=== PATIENT | female | born 1955 | race African-American/Black ===

== ENCOUNTER 2023-04-11 11:43 | Outpatient (CLI) | payer MEDICARE, MEDICAID | END 2023-04-11 11:44 | disposition home or self-care (01) | LOC: CSHRAD 11:43 | PROVIDERS: ATTEND Specialist | DX: Z72.0 Tobacco use (principal) | CPT/HCPCS: 71046 ==

== ENCOUNTER 2024-08-20 14:00 | Outpatient (CLI) | payer MEDICARE, MEDICAID | END 2024-08-20 14:01 | disposition home or self-care (01) | LOC: CSHMAMMO 14:00 | PROVIDERS: ATTEND Nurse Practitioner Family | DX: Z12.31 Encounter for screening mammogram for malignant neoplasm of breast (principal) | CPT/HCPCS: 77063; 77067 ==

== ENCOUNTER 2024-08-26 05:08 | Emergency (ER) | payer MEDICARE, MEDICAID ==
[2024-08-26] MEDS ORDERED: Ketorolac Tromethamine 30 MG (1 mL) VIAL ONE (05:30)
[2024-08-26] MEDS ORDERED: Dexamethasone 4 MG TAB ONE (05:31)
[2024-08-26 06:20] LABS: #Basophils 0.04 10x3/uL (0.0-0.2); #Eosinophils 0.14 10x3/uL (0.0-0.5); #Monocytes 0.37 10x3/uL (0.0-1.1); #Neutrophils 3.72 10x3/uL (1.5-8.4); %Basophils 0.6 % (0.0-2.0); %Lymphocytes 37.6 % (18.0-47.0); %Monocytes 5.4 % (0.0-10.0); %Neutrophils 54.1 % (40.0-75.0); ALT (SGPT) 18 U/L (8-55); AST (SGOT) 17 U/L (5-34); Albumin 4.2 g/dL (3.4-4.8); Alkaline Phosphatase 80 U/L (40-110); Anion Gap 18 mmol/L (10-20); BUN (Urea Nitrogen) 16 mg/dL (9.8-20.1); Bilirubin, Total 0.4 mg/dL (0.2-1.2); Calc. Creatinine Clearance 0 mL/min (70-130); Calcium 9.4 mg/dL (7.8-10.44); Carbon Dioxide 18 mmol/L (23-31); Chloride 112 mmol/L (98-107); Estimated GFR 51; Globulin 3.3 g/dL (2.4-3.5); Glucose 99 mg/dL (80-115); Hematocrit 44.5 % (34.9-44.5); Hemoglobin 14.4 g/dL (12.0-15.5); Mean Corpuscular HGB CONC 32.4 g/dL (32.0-36.0); Mean Corpuscular Volume 86.4 fL (81.6-98.3); Mean Platelet Volume 9.4 fL (7.4-10.4); Platelet Count 272 10x3/uL (150-450); Potassium 4.4 mmol/L (3.5-5.1); Protein, Total 7.5 g/dL (5.8-8.1); RBC Distribution Width 13.8 % (11.5-14.5); Red Blood Cell (RBC) Count 5.15 10x6/uL (3.90-5.03); Sodium 144 mmol/L (136-145); White Blood Cell (WBC) Count 6.9 10x3/uL (3.5-10.5)
[2024-08-26 06:22] LABS: Troponin I 0.019 ng/mL (< 0.028)
== END 2024-08-26 06:45 | disposition home or self-care (01) ==
LOC: CSHERS 05:08
DX: B34.9 Viral infection, unspecified (principal); F17.210 Nicotine dependence, cigarettes, uncomplicated; I10 Essential (primary) hypertension
CPT/HCPCS: 71045; 80053; 84484; 85025; 93005; J1885; 96374; J8540